=== PATIENT | male | born 1950 | race Caucasian/White ===

== ENCOUNTER → 2019-06-14 | Outpatient (CLI) | payer MEDICARE, OTHER ==
--- NOTE | 2019-06-14 07:49 | US ---
EXAMINATION TYPE: US duplex aorta DATE OF EXAM: 06/14/2019 COMPARISON: NONE CLINICAL HISTORY: I71.8 Aortic aneurysm of unspecified site, rupture. Screening EXAM MEASUREMENTS: Abdominal Aorta: Proximal: 3.0 x 2.4cm Mid: 1.9 x 1.9cm Distal: 1.5 x 1.3cm Bifurcation: RT: 1.0 x 1.0cm LT: 1.1 x 0.9cm Proximal aorta measuring upper limits of normal. Atherosclerosis noted throughout IMPRESSION: Proximal abdominal aorta is upper limits of normal size measuring 3 cm (greater than 3 cm meets criteria for aneurysmal dilatation).
== END | disposition home or self-care (01) ==
LOC: RADUSWWP 06:45
PROVIDERS: ATTEND Internal Medicine
DX: I71.4 Abdominal aortic aneurysm, without rupture (principal)
CPT/HCPCS: 93979